=== PATIENT | female | born 1995 | race Caucasian/White ===

== ENCOUNTER 2023-04-14 19:52 | Emergency (ER) | payer BC ==
[~2023-04-14] VITALS: Ht 165.1 cm; Wt 108.9 kg
[2023-04-14 20:31] VITALS: BP_SYST 122; PULSE 79; RESP 17; TEMP 98.7; O2SAT 99
[2023-04-14] MEDS ORDERED: ONDANSETRON 4 MG ODT TAB PO ONE (21:00)
[2023-04-14 21:12] LABS: BILIRUBIN,URINE NEGATIVE (NEGATIVE); BLOOD, URINE NEGATIVE (NEGATIVE); CLARITY/URINE SL CLOUDY (CLEAR); COLOR,URINE YELLOW (YELLOW); GLUCOSE,URINE NEGATIVE (NEGATIVE); KETONES,URINE 1+ (NEGATIVE); LEUKOCYTE ESTERASE ,URINE NEGATIVE (NEGATIVE); NITRITE, URINE NEGATIVE (NEGATIVE); PROTEIN URINE NEGATIVE (NEGATIVE); UROBILINOGEN,URINE 0.2 (0.2-1.0)
[2023-04-14 21:13] LABS: HCG,QUAL RESULT POSITIVE (NEGATIVE)
[2023-04-14] MEDS ORDERED: ONDANSETRON HCL 4 MG/2 ML VIAL IVP ONE (22:15)
[2023-04-14] MEDS ORDERED: NACL 0.9% 1,000 ML IV ONE (22:15)
[2023-04-14 22:30] LABS: BASOPHILS # (AUTO) 0.1 K/uL (0.0-0.2); BASOPHILS % (AUTO) 0.9 % (0.0-2.0); EOSINOPHILS # (AUTO) 0.2 K/uL (0.0-0.4); EOSINOPHILS % (AUTO) 1.9 % (0.0-4.0); HEMATOCRIT 38.2 % (36-48); HEMOGLOBIN 12.5 g/dL (12.0-16.0); LYMPHOCYTES # (AUTO) 3.2 K/uL (1.0-5.5); LYMPHOCYTES % (AUTO) 34.6 % (20.5-51.5); MEAN CORPUSCULAR HEMOGLOBIN 27 pg (27-31); MEAN CORPUSCULAR HGB CONC 33 % (32-36); MEAN CORPUSCULAR VOLUME 83 fL (79.0-98.0); MONOCYTES # (AUTO) 0.6 K/uL (0.0-1.0); MONOCYTES % (AUTO) 6.3 % (1.7-9.3); NEUTROPHILS # (AUTO) 5.2 K/uL (1.8-7.7); NEUTROPHILS % (AUTO) 56.3 % (40.0-70.0); PLATELET COUNT (AUTO) 262 K/uL (130-430); RED CELL DISTRIBUTION WIDTH 14.9 % (9.0-15.0); WHITE BLOOD COUNT (AUTO) 9.2 K/uL (4.8-10.8)
[2023-04-14 22:43] LABS: CALCIUM 9.6 mg/dL (8.4-11.0); CREATININE 0.51 mg/dL (0.55-1.30)
[2023-04-14 22:48] LABS: ALBUMIN 3.6 g/dL (3.4-4.8); TOTAL BILIRUBIN 0.4 mg/dL (0.0-1.0); TOTAL PROTEIN, SERUM 7.7 g/dL (6.4-8.3)
[2023-04-15 00:13] VITALS: TEMP 97.4
[2023-04-15] MEDS ORDERED: ONDA-8 TL (00:13)
[2023-04-15 00:27] VITALS: BP_SYST 114; PULSE 80; RESP 14; O2SAT 98
== END 2023-04-15 00:27 | disposition home or self-care (01) ==
LOC: SED 19:52
DX: O21.0 Mild hyperemesis gravidarum (principal); Z3A.08 8 weeks gestation of pregnancy; Z79.899 Other long term (current) drug therapy
CPT/HCPCS: 99284; 96360; 76801; 80053; 81001; 84703; 85025; 36415; 81003; Q0162; J7030